=== PATIENT | female | born 1990 | race Two or more races ===

== ENCOUNTER 2024-02-10 17:30 | Emergency (ER) | payer OTHER ==
[~2024-02-10] VITALS: Ht 172.7 cm; Wt 70.3 kg
[2024-02-10] MEDS ORDERED: EUTHYROX50 MCG PO (17:43)
[2024-02-10] MEDS ORDERED: DIPHENHYDRAMINE HCL 50 MG/ML VIAL 1ML IM ONE (19:00)
[2024-02-10 19:42] LABS: HEMATOCRIT 38.9 % (36.0-45.00); HEMOGLOBIN 13.4 g/dL (12.0-15.00); MEAN CELL VOLUME 87.8 fL (80.00-100.00); MEAN CORPUSCULAR HEMOGLOBIN 30.2 pg (27.00-32.0); MEAN CORPUSCULAR HGB CONC 34.4 g/dl (32.0-36.0); PLATELET COUNT 260 K/uL (150-450); RED BLOOD COUNT 4.43 M/uL (4.00-6.00); RED CELL DISTRIBUTION WIDTH 12.8 % (11.5-14.5)
[2024-02-10] MEDS ORDERED: CORTISONE60 GM TOP (20:01)
[2024-02-10] MEDS ORDERED: BENADRYL ITCH28.3 GM TOP (20:01)
== END 2024-02-10 21:02 ==
LOC: ER 17:30
PROVIDERS: Nurse Practitioner Family
DX: L56.4 Polymorphous light eruption (principal); L74.0 Miliaria rubra; Z91.030 Bee allergy status; Z91.09 Other allergy status, other than to drugs and biological substances
CPT/HCPCS: 36415; 96372; 99282; J1200